=== PATIENT | female | born 1980 | race Caucasian/White ===

== ENCOUNTER → 2020-08-19 08:53 | Outpatient (CLI) | payer OTHER, SELFPAY ==
--- NOTE | ~2020-08-19 | MMUS_ITS ---
EXAMINATION: MM diagnostic kyaw RT w marie, US breast RT complete HISTORY: Referring physician reportedly palpates right breast lumps TECHNIQUE: ML, MLO and cc 3-D tomosynthesis images of the right breast were performed and synthetic 2 -D images were generated. CAD analysis was submitted and interpreted. High resolution complete right breast ultrasound was performed. COMPARISON: None BREAST PARENCHYMAL COMPOSITION: There are scattered areas of fibroglandular density. FINDINGS: MAMMOGRAPHIC FINDINGS: No suspicious mass or architectural distortion, malignant calcification, skin thickening or retractio n is detected. ULTRASOUND: There is no evidence of focal abnormal solid or cystic lesion or suspicious shadowing of the right br east. IMPRESSION: 1. No mammographic evidence of malignancy 2. Routine mammographic screening is recommended. BI-RADS Category 1: Negative Reviewed, dictated and finalized at location A. IMPRESSION: 1. No mammographic evidence of malignancy 2. Routine mammographic screening is recommended. BI-RADS Category 1: Negative
== END ==
PROVIDERS: PCP Internal Medicine Infectious Disease; Visit Provider Nurse Practitioner Obstetrics & Gynecology
DX: N63.10 Unspecified lump in the right breast, unspecified quadrant (principal)
CPT/HCPCS: 76641; 77061; 77065; G0279

== ENCOUNTER → 2021-10-11 10:57 | Outpatient (CLI) | payer OTHER, SELFPAY ==
--- NOTE | ~2021-10-11 | MM_ITS ---
EXAMINATION: MM screening kyaw BI w marie HISTORY: Screening mammogram TECHNIQUE: Craniocaudal and mediolateral oblique 3-D tomosynthesis images were obtained and synthetic 2-D images were generated. CAD analysis was submitted and interpreted. COMPARISON: 08/19/2020 diagnostic right mammogram and complete right breast ultrasound BREAST PARENCHYMAL COMPOSITION: FINDINGS: There is no evidence of suspicious mass, calcification, or architectural distortion to sugg est malignancy in either breast. There has been no suspicious interval change. IMPRESSION: 1. No mammographic evidence of malignancy. 2. Recommend routine screening mammography in one year. BI-RADS Category 1: Negative Reviewed, dictated and finalized at location A. ORTHO
== END ==
PROVIDERS: Visit Provider Nurse Practitioner Obstetrics & Gynecology
DX: Z12.31 Encounter for screening mammogram for malignant neoplasm of breast (principal)
CPT/HCPCS: 77063; 77067

== ENCOUNTER 2024-01-25 08:46 | Emergency (ER) | payer OTHER, SELFPAY ==
[2024-01-25 08:52] VITALS: BP 156/108; PULSE 84; RESP 20; TEMP 36.9; O2SAT 100
--- NOTE | 2024-01-25 09:06 | ED.SKABFB ---
HPI - Skin/Abscess/Foreign Bdy General Chief complaint: Skin/Abscess/Foreign Body Stated complaint: infection on arm Time Seen by Provider: 01/25/24 09:06 Source: patient, RN notes reviewed and old records reviewed Mode of arrival: ambulatory Limitations: no limitations History of Present Illness HPI narrative: 43 year old female who presents to [facility] with complaints of noting purulent drainage from her incisional site distal area of right arm. Patient reports that she saw her doctor at [facility] on and she reports that they thought there was a stitch in there and they dug around in it and gave her some Mupirocin ointment to apply to area twice daily. She states that yesterday she noted purulent drainage and also today. Patient states initially she received injury to her right arm from a dog attack and had surgery to the nerves in her right arm on December 18. Patient states tat she has complex regional pain syndrome to her right arm and is constantly in some pain. Patient is tearful and anxious reports that she does see a psychiatrist for her anxiety. MD complaint: other ( drainage from incisional site ) Onset (ago): day(s) (day 2) Location: RUE (distal forearm) Severity scale (1-10): 10 Treatments prior to arrival: other (Cleansing with dial soap and applying Mupiricin ointment) Related Data Home Medications Medication Instructions Recorded Confirmed dextromethorphan IR 45 tablet PO 01/25/24 mg-bupropion ER 105 mg biphasic tablet (Auvelity) hydrocodone 5 mg-acetaminophen 325 tablet 01/25/24 mg tablet losartan 50 mg tablet mg 01/25/24 mupirocin 2 % topical ointment topical 01/25/24 oxcarbazepine 300 mg tablet mg 01/25/24 oxycodone 5 mg tablet mg 01/25/24 pregabalin 150 mg capsule mg 01/25/24 tramadol 50 mg tablet mg 01/25/24 Allergies Allergy/AdvReac Type Severity Reaction Status Date / Time No Known Allergies Allergy Unverified 07/29/12 13:30 Review of Systems Review of Systems: CONSTITUTIONAL: Denies fever, chills, or sweats. CARDIOVASCULAR: Denies chest pain, palpitations, or edema. RESPIRATORY: Denies cough or dyspnea. GASTROINTESTINAL: Denies abdominal pain, nausea, vomiting SKIN: Reports some redness. Reports purulent drainage, no vesicles, reports pain beyond proportion to her right arm states has CRS to her right arm MUSCULOSKELETAL: Denies myalgia. NEUROLOGIC: Denies headache, numbness All systems reviewed & are unremarkable except as noted in HPI and below PMFSH Past Medical History Medical History (Updated 01/26/24 @ 08:00 by Ruchi Paez NP) Anxiety and depression Asthma Complex regional pain syndrome right arm Hypertension Surgical History Surgical History (Updated 01/26/24 @ 07:59 by Ruchi Paez NP) History of surgery on arm right arm nerve repair December 2023 Social History Social History (Updated 01/26/24 @ 08:01 by Ruchi Paez NP) Smoking status: Never smoker Alcohol intake: unknown Substance use type: opiates Last use: takes pain medcation for CRS right arm Living arrangements: with family Gender identity (if verbalized by the patient): Female Comments At time of signature, agree with nursing past medical, surgical, social and family history. There is no relevant family history pertinent to the presenting complaint Exam Narrative: GENERAL: Well-appearing, well-nourished, and in no acute distress, anxious. HEAD: Normocephalic, atraumatic. EYES: PERRLA and EOMI. ENT: Nares clear, no rhinorrhea or epistaxis. Mucous membranes moist. NECK: Supple. no lymphadenopathy CHEST: Clear to auscultation. No respiratory distress.SAO2 100% on room air HEART: Regular rate and rhythm. No murmur heard. Normal peripheral pulses. ABDOMEN: Soft, nontender, nondistended, normal active bowel sounds. EXTREMITIES: Normal range of motion. No edema. SKIN: Warm, dry. Erythema, tenderness, area along distal incisional area with pu
== END 2024-01-25 09:33 | disposition home or self-care (01) ==
PROVIDERS: Emergency Provider Registered Nurse; PCP Internal Medicine Infectious Disease
DX: T81.49XA Infection following a procedure, other surgical site, initial encounter (principal); J45.909 Unspecified asthma, uncomplicated; I10 Essential (primary) hypertension
CPT/HCPCS: 99203; G0463

== ENCOUNTER 2024-02-13 22:42 | Emergency (ER) | payer OTHER, SELFPAY ==
[2024-02-13] VITALS (8 sets, daily range): BP systolic 127–142; BP diastolic 77–91; PULSE 70–80; RESP 13–20; TEMP 36.6; O2SAT 95–99
--- NOTE | 2024-02-13 23:21 | ED.CHESTPAIN ---
HPI - Chest Pain General Chief Complaint: Chest Pain Stated Complaint: Chest Pain Time Seen by Provider: 02/13/24 23:00 Source: patient Mode of arrival: ambulatory Limitations: no limitations History of Present Illness HPI narrative: this is a 42-year-old female with no significant past medical history presents with chest pain with left arm numbness has now resolved painful with deep inspiration with some reproducible with palpation of your left chest wall currently not having any chest pain no shortness of breath no fever chills no nausea vomiting no diaphoresis no history of heart disease. MD complaint: chest pain Onset (ago): hour(s) Timing of current episode: now resolved Onset: during rest Pain radiation: left arm Severity: mild Quality: heaviness Relieving factors: nothing Exacerbating factors: nothing Related Data Home Medications Medication Instructions Recorded Confirmed dextromethorphan IR 45 1 tablet PO BID 02/13/24 02/13/24 mg-bupropion ER 105 mg biphasic tablet (Auvelity) fexofenadine 180 mg tablet 180 mg PO DAILY 02/13/24 02/13/24 hydrocodone 5 mg-acetaminophen 325 1 tablet PO Q6H PRN Pain 02/13/24 02/13/24 mg tablet losartan 50 mg tablet 50 mg PO DAILY 02/13/24 02/13/24 oxcarbazepine 300 mg tablet 300 mg PO BID 02/13/24 02/13/24 pregabalin 150 mg capsule 150 mg PO TID 02/13/24 02/13/24 Allergies Allergy/AdvReac Type Severity Reaction Status Date / Time No Known Allergies Allergy Verified 02/13/24 23:21 Review of Systems Review of Systems: All systems reviewed & are unremarkable except as noted in HPI and below PMFSH Past Medical History Medical History Patient denies medical problems Exam Const: General: healthy appearing Nutritional Appearance: well nourished Orientation/consciousness: patient oriented x3 Limitations: no limitations Neck: Neck: normal visual inspection and no lymphadenopathy Chest: Chest palpation & inspection: normal inspection of the chest Resp: Effort & Inspection: normal respiratory effort Auscultation: clear to auscultation bilaterally Cardio: Rate: regular rate Rhythm: regular rhythm GI: GI Palp: Yes Soft to palpation Auscultation: normal bowel sounds : General: Yes bladder normal to palpation Neuro: General: patient oriented x3, moves all extremities and no meningeal signs Extrem: General: normal to inspection and no clubbing, cyanosis or edema Psych: Mental Status: mental status grossly normal Affect: normal affect Course Course Emergency Course: patient with some reproducible chest pain and left arm numbness as subsequently resolved with no pain or tenderness in her neck EKG is normal sinus rhythm with heart rate of 68 with a blood work performed with negative troponin and CBC and CMP within range. Vital Signs Vital signs: Vital Signs Temperature 36.6 C 02/13/24 22:45 Pulse Rate 74 02/13/24 22:45 Respiratory Rate 18 02/13/24 22:45 Blood Pressure 142/91 H 02/13/24 22:45 Pulse Oximetry 96 02/13/24 22:45 Oxygen Delivery Room Air 02/13/24 22:45 Temperature 36.6 C 02/13/24 22:45 Pulse Rate 74 02/13/24 22:45 Respiratory Rate 18 02/13/24 22:45 Blood Pressure 142/91 H 02/13/24 22:45 Pulse Oximetry 96 02/13/24 22:45 Oxygen Delivery Room Air 02/13/24 22:45 Critical Care Time Critical Care Time Critical Care Time: No Discharge Plan Discharge Clinical Impression: Atypical chest pain Patient Disposition: Home, Self-Care Condition: Stable Instructions: Antibiotic Form, Chest Wall Pain (ED) Additional Instructions: Advise to follow up primary care physician within the next 2 to 3 days for further evaluation treatment. Prescriptions: No Action losartan 50 mg Tablet 50 mg PO DAILY hydrocodone-acetaminophen 5-325 mg Tablet 1 tablet PO Q6H PRN (Reason: Pain) oxcarbazepine 300 mg Tablet 300 mg PO
[2024-02-13 23:22] LABS: Basophils Absolute Auto 0.03 K/mm3 (0.00-0.10); Basophils Percent Auto 0.5 % (0.0-1.0); Eosinophils Absolute Auto 0.16 K/mm3 (0.02-0.50); Eosinophils Percent Auto 2.6 % (1.0-6.0); Hematocrit 37.3 % (35.0-49.0); Hemoglobin 12.6 g/dL (12.0-15.0); Immature Granulocyte Absolute 0.05 K/mm3 (0.00-0.00); Immature Granulocyte Percent A 0.8 % (0.0-0.0); Lymphocytes Percent Auto 29.8 % (18.0-42.0); Mean Corpuscular HGB Conc 33.8 g/dL (32-36); Mean Corpuscular Hemoglobin 29.6 pg (27.0-31.0); Mean Corpuscular Volume 87.8 fL (78.0-102.0); Monocytes Absolute Auto 0.62 K/mm3 (0.10-0.90); Monocytes Percent Auto 10.2 % (2.0-11.0); Neutrophils Absolute Auto 3.39 K/mm3 (1.70-7.20); Neutrophils Percent Auto 56.1 % (50.0-70.0); Platelet Count Result 229 K/mm3 (150-420); Red Blood Count 4.25 M/mm3 (4.20-5.40); Red Cell Distribution Width 12.3 % (11.6-14.4); White Blood Count 6.1 K/mm3 (4.8-10.8)
[2024-02-13 23:42] LABS: Alanine Aminotransferase 33 U/L (14-59); Albumin Level 3.8 g/dL (3.4-5.0); Alkaline Phosphatase 72 U/L (46-116); Anion Gap 8 mmol/L (8-16); Aspartate Amino Transferase 11 U/L (15-37); Bilirubin,Total 0.2 mg/dL (0.00-1.00); Blood Urea Nitrogen 13 mg/dL (7-18); Calcium 8.4 mg/dL (8.5-10.1); Carbon Dioxide 28 mmol/L (21-32); Chloride 103 mmol/L (98-108); Estimated CRCL calculation 111 ml/min; Estimated Glomerular Filt Rate > 60; Glucose 89 mg/dL (70-99); Osmolality Calculated 287 mOsm/kg (285-295); Potassium 3.9 mmol/L (3.5-5.1); Sodium 139 mmol/L (136-145); Total Protein 6.5 g/dL (6.4-8.2); Troponin I 4.7 ng/L (0.00-60.4)
== END 2024-02-13 23:45 | disposition home or self-care (01) ==
PROVIDERS: Emergency Provider Emergency Medicine
DX: R07.89 Other chest pain (principal); Z79.899 Other long term (current) drug therapy; Z79.891 Long term (current) use of opiate analgesic
CPT/HCPCS: 36415; 80053; 84484; 85025; 93005; 99284